=== PATIENT | female | born 1970 | race Caucasian/White ===

== ENCOUNTER 2016-06-19 14:47 | Emergency (ER) | payer BC, OTHER ==
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
[2016-06-19] MEDS ORDERED: AMPICILLIN SOD/SULBACTAM 3 GM VIAL IV ONE (15:17)
[2016-06-19] MEDS ORDERED: ONDANSETRON HCL INJ/PF 4 MG/2 ML SDV IV ONE (15:17)
[2016-06-19] MEDS ORDERED: HYDROMORPHONE HCL INJ/PF 2 MG/ML AMPULE IV ONE (15:17)
[2016-06-19] MEDS ORDERED: DIPH/PERTUSS(ACELL)/TETANUS VAC/PF 0.5 ML SYR (>=10YO) IM ONE ×2 (15:34→20:37)
[2016-06-19] MEDS ORDERED: SODIUM BICARBONATE 8.4% INJ 10 MEQ/10 ML DISP.SYRIN ONE (16:18)
[2016-06-19] MEDS ORDERED: LIDOCAINE 1% INJ-PF (10 MG/ML) 30 ML SDV ONE (16:29)
[2016-06-19] MEDS ORDERED: LIDOCAINE 1%/EPINEPHRINE INJ 20 ML VIAL INJ ONE (16:51)
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
--- NOTE | 2016-06-19 21:08 | OPERATIVE REPORT E ---
Operative Report NAME: KEERTHI COLLINS : 1970 AGE: 46Y DATE OF SURGERY: 06/19/2016 ROOM: PREOPERATIVE DIAGNOSES: COMPLEX AVULSED INJURY OF THE INTERNAL NARES ON THE RIGHT SIDE, OPEN FRACTURE OF THE LATERAL WALL OF THE NASAL BONE, AVULSION INJURY AND FRACTURE OF THE SEPTUM, AVULSION OF THE BUCCAL SULCUS GREATER THAN 8 CM, AVULSION OF THE FRENULA WITH LOSS OF FRENULA, AVULSION OF THE UPPER LIP FULL HEIGHT FULL THICKNESS WITH ORBICULARIS PEGGY MUSCLE BEING RIPPED OUT FROM THE MEDIAL COMPONENT OF THE LIP WHICH WAS CYANOTIC AND HAD TO BE SACRIFICED AND RECONSTRUCTED. OPERATION: 1. Exploration. 2. Cleansing using Betadine and saline solution with a 25-gauge needle and 10 mL syringe. 3. Reconstruction of multiple complex injuries including the reconstruction of the right internal nares, 360 degree avulsion of the external nares 1 cm in from the margin and 360 degrees around the whole nostril with open reduction of the left lateral wall nasal fracture and reconstruction of avulsion of the septum, reconstruction of the buccal sulcus, reconstruction of the frenula, reconstruction of the right upper lip full thickness full height with reconstruction using an orbicularis peggy advancement flap to reconstitute the orbicularis peggy muscle. SURGEON: JUNIOR VARGAS JR., M.D. ANESTHESIA: LMAC and sedation through the ER physician, lidocaine 1% with epinephrine and bicarb was used for its anesthetic and hemostatic effects. The patient tolerated it well. TISSUE REMOVED OR ALTERED: No specimens. COMPLICATIONS: None. PROCEDURE AND FINDINGS IN DETAIL: The patient was prepped with a Betadine solution and draped in a sterile aseptic manner. After this, we began our exploration of the lip. It was noted that there was cyanotic muscle and it was avulsed from the medial component and this cyanotic area of muscle of the orbicularis peggy was not going to be viable. The next exploration revealed that there was a tear within the right naris. As we further explored this, it was noted that this was a very complex injury. It extended from the margin of the naris approximately 1 cm or so in and extended into the nose. The defect was 360 degrees. The septum appeared to have some deformity at its distal portion where it meets with the columella. The rest of the injury was noted that there was actual avulsion of the buccal sulcus right off of the gingiva and this extended all the way through and led up to the naris defect. We began by procedure by reconstructing the naris. After anesthetizing with 1% lidocaine with epinephrine and bicarb for its anesthetic and hemostatic effects, after cleaning with a Betadine Q-Tip, I tried to clean the area as best as possible, we began our reconstruction using 4-0 chromic sutures. This was rather set back from the margin approximately about a centimeter along the nostril floor and along the lateral wall. As we explored the area, an attempt was made to try to manipulate the lateral nasal bone to try to straighten out the defect as best as possible, without causing any new bleeding because it was very difficult to access this far into the nose. After we tried to manipulate the nasal bone and as we were placing sutures [id number], we reconstructed the naris. The septum had what appeared to be an avulsion near the distal tip near the columella junction. This was sutured with 4-0 chromic sutures to reconstruct the distal septum and to attach it to create continuity of the rest of the naris. So sutures were placed, 4-0 chromic 360 degrees and this now reconstructed the naris so that there was now an open space. Without reconstructing this, this would have led to a gross deformity and a long-term breathing problem difficult to correct in the future, but luckily we were able to get the mucosal surfaces all back together again 360 degrees around repairing the septal and columellar area and the septum itself and the nostril floor, lateral wall, lateral nasal bone and the superior aspect of the nose. A small amount of the lower lateral cartilage was placed back into the nose in order to try to align it as best as possible in order to give her as smooth a contour as possible. After we completed this part, we then decided that it was best to try to realign the lip before we repaired the buccal sulcus. Using separate gloves and instrumentation, we anesthetized the area with the 1% lidocaine with epinephrine and bicarb for its anesthetic and hemostatic effects and the same local was used inside the mouth. After we got hemostasis, we noticed that the orbicularis peggy muscle was avulsed out of the medial component and therefore if we did not reestablish continuity, this was going to leave a permanent deformity. We went ahead and freed up the orbicularis peggy muscle from the lateral component, freeing it up enough and then dissecting to find the medial component and then placing 5-0 Vicryl sutures to reconstruct the continuity of the orbicularis peggy muscle. Prior to that, though, we had closed the mucosal surface of the lip. This was again a full height full thickness avulsion. The mucosal surface had some jagged little flaps that were all realigned and reconstructed to give her a good mucosal repair. As we got to the vermilion wet-dry interface, this was when we went ahead and worked on the orbicularis peggy muscle. Once we did this, again labial arteries were coagulated and reconstruction of the orbicularis peggy muscle as described above was performed. We then used 5-0 Vicryl to reapproximate the rest of the orbicularis peggy muscle. We got both of these back together again with the advancement of the muscle to the medial component of the lip. Subcutaneous and deep dermis were closed with a 5-0 Vicryl. Once we had a stable lip repair, again at the beginning of the case we had aligned the white roll vermilion border and placed marking dots along the white roll vermilion border so we could realign as best as possible. Throughout the case, loupe magnification was used. Once we had the majority of the lip realigned, we then went ahead into the mouth. This was a very large avulsion of the buccal sulcus, completing tearing it off of the gingiva and again extended all the way up into the naris. We cleaned the area as best as possible with Betadine and after anesthetizing it, we then went ahead and closed the area with 5-0 and 4-0 chromic sutures. The frenula had been completely avulsed and what we did was to try to recreate the frenula with a frenula-type of plasty using some of the remaining mucosal tissue from one of the avulsed flaps and tacked this into the frenula defect with the 5-0 chromic. The rest of the sulcus was reconstructed with 4-0 chromic sutures, pretty much extending from one side of the mouth all the way to the opposite side of the mouth. Once this was reconstructed, we then cleaned our instruments and separate gloves, cleaned the lip wound as we did earlier with a Betadine saline solution with a 25-gauge needle and 10 mL syringe. After we thoroughly cleaned this, we then went ahead and finished up the rest of the suturing. We aligned the white roll vermilion border because now we had alignment of the vermilion wet-dry interface and placed 6-0 Prolene sutures to realign the white roll vermilion border and the rest of the vertical lip was closed with 6-0 interrupted simple Prolene sutures as well as the vermilion and as well as the vermilion portion of the lip which extended from the wet-dry interface up to the actual white roll. So once we completed all of this, we had a rather good repair and stable repair. We applied tincture of Benzoin, Steri-Strips to the lip and then a drip pad to the lip for the nose. Bacitracin was applied within the nose and full instructions were given to the patient and . They are to use Peridex orally and use some peroxide within the nose and keep bacitracin coating all the sutures within the nose, keep the head elevated, limit activities. Clear liquids for 2 days, full liquids 2 days, soft diet 2 days. Follow up in the office on Wednesday, call first thing in the morning on Wednesday to make an appointment and I will see her Wednesday and see how things are doing. If there are any problems before that time, they are to report back to the emergency room. DICTATING PHYSICIAN: JUNIOR VARGAS JR., M.D. [id number] PHY#: [id number] ID: [id number] JOB#: [id number] ACCT: [id number] cc:JUNIOR VARGAS JR., M.D. >
[2016-06-19] MEDS ORDERED: ONDANSETRON ODT 4 MG TAB (6 TAB/DSPK) PO PRN (21:13)
[2016-06-19 21:21] VITALS: BP 122/76
== END 2016-06-19 21:20 | disposition home or self-care (01) ==
LOC: ER 14:47
DX: S01.21XA Laceration without foreign body of nose, initial encounter (principal); S01.511A Laceration without foreign body of lip, initial encounter; Y92.410 Unspecified street and highway as the place of occurrence of the external cause; V89.2XXA Person injured in unspecified motor-vehicle accident, traffic, initial encounter; S02.2XXB Fracture of nasal bones, initial encounter for open fracture; S01.512A Laceration without foreign body of oral cavity, initial encounter
CPT/HCPCS: 99284; 90471; 96374; 96375; 70450; 70486; 72125; 90715; J0295; J3490; J1170; J2405